=== PATIENT | male | born 1995 | race Caucasian/White ===

== ENCOUNTER 2019-02-26 00:40 | Emergency (ER) | payer OTHER ==
--- NOTE | 2019-02-26 01:09 | EDPHY ---
H & P Stated Complaint: Pt. states intermittent mid sternal to epigastric pain x1week Time Seen by Provider: 02/26/19 00:44 HPI/ROS: 24 yo M presents c/o substernal and epigastric pain intermittent for one week, this episode lasting about 2-3 hours, sometimes he feels like he can relieve the pain by twisitng his back. He has had some nausea with this pain. No fever or chills. No vomiting. He denies drug use other than mj and nicotine. Denies cocaine, meth, adderall, heroin, etc He states he drinks alcohol about once a week and will have 4 drinks. Additionally states he is very stressed with school and feels this maybe stress related but was most worried that is could be his heart. Review of systems As per HPI General no fever no chills no weakness HEENT no eye pain no eye discharge. No eye redness, no sore throat Respiratory no cough, no shortness of breath Cardiac positive chest pain, no peripheral edema GI positive abdominal pain, no diarrhea, no constipation, positive nausea, no vomiting no flank pain, no hematuria, no dysuria Musculoskeletal no myalgias, no joint pain Heme no easy bruising, no easy bleeding Endo no polyuria, no polydipsia Skin no rashes, no pruritus Neuro no syncope, no dizziness, no headaches Psych is no suicidal ideation, no homicidal ideation Source: Patient Exam Limitations: No limitations - Personal History Current Tetanus Diphtheria and Acellular Pertussis (TDAP): Yes Tetanus Vaccine Date: 2016 - Medical/Surgical History Hx Asthma: Yes Hx Chronic Respiratory Disease: No Hx Diabetes: No Hx Cardiac Disease: No Hx Renal Disease: No Hx Cirrhosis: No Hx Alcoholism: No Hx HIV/AIDS: No Hx Splenectomy or Spleen Trauma: No Other PMH: Med hx-asthma. Surg-deviated septum and tonsils - Family History Significant Family History: No pertinent family hx - Social History Smoking Status: Current every day smoker Alcohol Use: Occasionally Drug Use: Marijuana - Physical Exam Exam: 24-year-old male alert and oriented no acute distress nontoxic appearance, mildly anxious HEENT atraumatic normocephalic, extraocular muscles intact, anicteric Oropharynx negative for erythema negative exudate, tolerating her own secretions Neck supple no meningismus Lungs clear to auscultation bilaterally Heart regular rate and rhythm without murmur rub or gallop Abdomen nondistended normoactive bowel sounds soft nontender Back no CVA tenderness, no step-offs, no spinal tenderness Extremities no cyanosis clubbing or edema Neuro alert and oriented, no focal deficits Constitutional: Initial Vital Signs Temperature (C) 37.5 C 02/26/19 00:45 Heart Rate 87 02/26/19 00:45 Respiratory Rate 16 02/26/19 00:45 Blood Pressure 149/83 H 02/26/19 00:45 O2 Sat (%) 95 02/26/19 00:45 O2 Delivery Mode Room Air Allergies/Adverse Reactions: No Known Allergies Allergy (Verified 02/26/19 00:58) Home Medications: Medication Instructions Recorded NK [No Known Home Meds] 02/26/19 Medical Decision Making ED Course/Re-evaluation: Patient seen and evaluated for substernal chest pain, upper epigastric pain of 1 week duration, intermittent in nature. EKG-normal sinus rhythm, no ischemic changes CXR neg pt given a GI cocktail with mild relief IV established, labs drawn CBC, CMP wnl dimer neg troponin neg lipase neg impression atypical chest pain anxiety gerd/gastritis Plan home Differential Diagnosis: Differential diagnosis considered but not limited to: Myocardial infarction, pericarditis, esophagitis, GERD, gastritis, anxiety, pancreatitis - Data Points Laboratory Results: 02/26/19 02/26/19 02/26/19 02:09 02:08 02:03 POC Sodium 143 mEq/L mEq/L (135-145) POC Potassium 3.9 mEq/L mEq/L (3.3-5.0) POC Chloride 102.0 mEq/L mEq/L (97-110) POC Total CO2 29 mEq/L mEq/L (22-31) POC BUN 16 mg/dL mg/dL (7-23) POC Creatinine 1.1 mg/dL mg/dL (0.7-1.3) POC Glucose 96 mg/dL mg/dL (70-100) POC Calcium 9.9 mg/dL mg/dL (8.5-10.4) POC Total Bilirubin 0.8 mg/dL mg/dL (0.1-1.4) POC AST 28 IU/L IU/L (17-59) POC ALT 14 IU/L L IU/L (21-72) POC Alk Phosphatase 61 IU/L IU/L (38-126) POC Troponin I 0.00 ng/mL ng/mL (0.00-0.08) POC Total Protein 7.3 g/dL g/dL (6.3-8.2) POC Albumin 4.0 g/dL g/dL (3.5-5.0) Lipase 105 IU/L IU/L (23-300) Medications Given: Discontinued Medications Al Hydroxide/Mg Hydroxide (Maalox Susp) 30 ml PO EDNOW ONE Stop: 02/26/19 01:24 Last Admin: 02/26/19 01:29 Dose: 30 ml Sodium Chloride (Ns) 1,000 mls @ 0 mls/hr IV ONCE ONE PRN Reason: Wide Open Stop: 02/26/19 02:23 Last Admin: 02/26/19 02:24 Dose: 1,000 mls Lidocaine (Lidocaine 2% Viscous) 5 ml PO EDNOW ONE Stop: 02/26/19 01:24 Last Admin: 02/26/19 01:28 Dose: 5 ml Point of Care Test Results: CBC CBC Collection Date 02/26/19 CBC Collection Time 02:03 WBC 5.82 RBC 5.1 HGB 15.8 HCT 44.2 PLT 153 Neut # 2.81 Neut 48.4 LYMPH # 2.67 LYMPH 45.9 MCV 86.7 Chemistry 02/26/19 02/26/19 02:09 02:08 POC Sodium 143 mEq/L mEq/L (135-145) POC Potassium 3.9 mEq/L mEq/L (3.3-5.0) POC Chloride 102.0 mEq/L mEq/L (97-110) POC Total CO2 29 mEq/L mEq/L (22-31) POC BUN 16 mg/dL mg/dL (7-23) POC Creatinine 1.1 mg/dL mg/dL (0.7-1.3) POC Glucose 96 mg/dL mg/dL (70-100) POC Calcium 9.9 mg/dL mg/dL (8.5-10.4) POC Total Bilirubin 0.8 mg/dL mg/dL (0.1-1.4) POC AST 28 IU/L IU/L (17-59) POC ALT 14 IU/L L IU/L (21-72) POC Alk Phosphatase 61 IU/L IU/L (38-126) POC Troponin I 0.00 ng/mL ng/mL (0.00-0.08) POC Total Protein 7.3 g/dL g/dL (6.3-8.2) POC Albumin 4.0 g/dL g/dL (3.5-5.0) D-Dimer D-Dimer Collection Date 02/26/19 D-Dimer Collection Time 02:03 D-Dimer (ng/ml) <100 Departure - Departure Disposition: Home, Routine, Self-Care Clinical Impression: Atypical chest pain, Anxiety, Gastritis Condition: Good Instructions: Gastritis (ED), Anxiety (ED) Referrals: Patient,NotPresent [Primary Care Provider] - As per Instructions [facility] [Provider Group] - As per Instructions
[2019-02-26] MEDS ORDERED: LIDOCAINE 2% VISCOUS 15 ML UDCUP PO ONE (01:23)
[2019-02-26] MEDS ORDERED: MAG HYDROX/AL HYDROX/SIMETH 30 ML UDCUP PO ONE (01:23)
--- NOTE | 2019-02-26 01:35 | CPEKG ---
Test Reason : OPEN Blood Pressure : / mmHG Vent. Rate : 086 BPM Atrial Rate : 086 BPM P-R Int : 161 ms QRS Dur : 102 ms QT Int : 359 ms P-R-T Axes : -03 055 017 degrees QTc Int : 430 ms Sinus rhythm Confirmed by Mary Perez ([id number] on 02/26/2019 1:34:42 AM Referred By: Mary Perez Confirmed By:Mary Perez
[2019-02-26] MEDS ORDERED: NS 1,000 ML IV ONE (02:22)
[2019-02-26 03:08] VITALS: BP 140/74
== END 2019-02-26 03:02 | disposition home or self-care (01) ==
LOC: CED 00:40
DX: R07.89 Other chest pain (principal); F41.9 Anxiety disorder, unspecified; K29.70 Gastritis, unspecified, without bleeding; F17.200 Nicotine dependence, unspecified, uncomplicated
CPT/HCPCS: 71046-PO; 80053-ER; 84484-ER; 85025-QW-ER; 85379-QW-ER; 96360-ER; 99285-ER